=== PATIENT | male | born 1990 | race Caucasian/White ===

== ENCOUNTER 2022-05-03 18:38 | Emergency (ER) | payer SELFPAY ==
[~2022-05-03] VITALS: Ht 172.7 cm; Wt 68.2 kg
[2022-05-03 18:43] VITALS: BP 118/73; TEMP 98.8
[2022-05-03] MEDS ORDERED: BACTRIM DS 8001 TAB PO ×2 (19:21→20:01)
[2022-05-03 19:30] VITALS: PULSE 68
== END 2022-05-03 19:30 | disposition home or self-care (01) ==
LOC: COL.ER 18:38
DX: L73.9 Follicular disorder, unspecified (principal); Z88.0 Allergy status to penicillin; Z28.310 Unvaccinated for COVID-19